=== PATIENT | male | born 1970 | race Caucasian/White ===

== ENCOUNTER 2017-06-07 04:34 | Emergency (ER) | payer BC ==
[2017-06-07 06:29] LABS: #Basophils 0.1 thou/uL (0.0-0.2); #Eosinphils 0.2 thou/uL (0.0-0.7); #Lymphocytes 0.4 thou/uL (1.20-3.40); #Monocytes 0.9 thou/uL (0.11-0.59); #Neutrophils 11.3 thou/uL (1.40-6.50); %Basophils 1.1 % (0.0-1.0); %Eosinophils 1.5 % (0.0-10.0); %Lymphocytes 2.8 % (21.0-51.0); %Monocytes 7.3 % (0.0-10.0); Hematocrit 50.2 % (42.0-52.0); Mean Platelet Volume 6.8 fL (7.4-10.4); Red Blood Cell (RBC) Count 5.28 mill/uL (4.70-6.10); White Blood Cell (WBC) Count 12.9 thou/uL (4.8-10.8)
[2017-06-07 06:38] LABS: Lactic Acid - Sepsis 1.1 mmol/L (0.5-2.2)
[2017-06-07 06:43] LABS: ALT (SGPT) 114 U/L (8-55); AST (SGOT) 80 U/L (5-34); Alkaline Phosphatase 74 U/L (40-150); Anion Gap 13 mmol/L (10-20); BUN (Urea Nitrogen) 17 mg/dL (8.9-20.6); Bilirubin, Total 0.8 mg/dL (0.2-1.2); Calc. Creatinine Clearance 0 mL/min (70-130); Calcium 9.5 mg/dL (7.8-10.44); Carbon Dioxide 23 mmol/L (22-29); Chloride 104 mmol/L (98-107); Estimated GFR-MDRD 84; Globulin 2.9 g/dL (2.4-3.5); Lipase 21 U/L (8-78); Protein, Total 7.2 g/dL (6.0-8.3)
[2017-06-07] MEDS ORDERED: Ondansetron HCl/PF 4 MG/2 ML Vial ONE ×2 (07:11→09:05)
[2017-06-07 08:29] LABS: Bilirubin Negative (Negative); Blood, Urine Negative (Negative); Glucose, Urine (Dipstick) Negative (Negative); Ketone, Urine Negative (Negative); Nitrite Negative (Negative); Protein, Urine (Dipstick) Negative (Neg-Trace)
--- NOTE | 2017-06-07 08:33 | CT ---
ABDOMEN AND PELVIC CT SCAN WITH IV CONTRAST: Date: 06/07/17 HISTORY: 46-year-old male with abdominal pain, weakness, and vomiting. FINDINGS: The lung bases are clear. There is some hepatomegaly with severe fatty changes of the liver. Gallbla dder, pancreas, spleen, and adrenal glands are unremarkable. No renal calculus or acute obstructi on. Normal appearing appendix. There are some small bowel loops which are upper range of normal in s ize but without evidence for significant mucosal fold thickening or wall thickening. No abscess or a bnormal fluid collection. There are numerous periaortic lymph nodes, the largest up to approximately 1.1 cm in short axis. IMPRESSION: Hepatomegaly with marked fatty changes of the liver. There are scattered numerous small retroperiton eal and periaortic lymph nodes up to approximately 1.1 cm in short axis. Borderline size small bowel loops. POS: [facility]
[2017-06-07] MEDS ORDERED: ISOVUE-370 76%-LOCM 1 ML ONE (14:16)
[2017-06-07] MEDS ORDERED: Iopamidol 370 76% 50 ML VIAL FS ONE (14:16)
== END 2017-06-07 09:13 | disposition home or self-care (01) ==
LOC: ERS 04:34
DX: K52.9 Noninfective gastroenteritis and colitis, unspecified (principal); R16.0 Hepatomegaly, not elsewhere classified; I10 Essential (primary) hypertension; F32.9 Major depressive disorder, single episode, unspecified
CPT/HCPCS: 74177; 80053; 81003; 83605; 83690; 85025; 96361; 96374; 96376; J2405

== ENCOUNTER 2017-07-25 07:40 | Emergency (ER) | payer BC | END 2017-07-25 09:45 | disposition home or self-care (01) | LOC: ERS 07:40 | DX: J11.1 Influenza due to unidentified influenza virus with other respiratory manifestations (principal); J45.909 Unspecified asthma, uncomplicated; F32.9 Major depressive disorder, single episode, unspecified | CPT/HCPCS: 87804; 94760; J7620 ==